=== PATIENT | female | born 1950 | race Caucasian/White ===

== ENCOUNTER 2019-10-25 17:38 | Emergency (ER) | payer MEDICARE, SELFPAY | END 2019-10-25 17:54 | disposition left against medical advice (07) | LOC: EXPBETH 17:54 | PROVIDERS: Emergency Provider Nurse Practitioner Family; PCP Internal Medicine Infectious Disease | DX: Z53.21 Procedure and treatment not carried out due to patient leaving prior to being seen by health care provider (principal) | CPT/HCPCS: 99199 ==

== ENCOUNTER 2019-10-25 17:41 | Emergency (ER) | payer MEDICARE, SELFPAY ==
--- NOTE | ~2019-10-25 | XR_ITS ---
XR wrist LT min 3V 10/25/2019 18:10 Indication: Fall. Wrist pain. Procedure: 4 views left wrist Comparison: No prior studies for comparison. Findings: Osteopenia. There is moderate osteoarthritis of the triscaphe and first CMC joints. No acut e fracture or traumatic malalignment. No focal soft tissue abnormality. No foreign bodies. There are degenerative changes of the first-third MCP joints. Impression: 1: No acute fracture. 2: Moderate polyarticular osteoarthritis. Reviewed, dictated and finalized at location A. Impression: 1: No acute fracture. 2: Moderate polyarticular osteoarthritis.
[2019-10-25 17:51] VITALS: BP 141/75; PULSE 75; RESP 16; TEMP 37.1; O2SAT 100
--- NOTE | 2019-10-25 18:04 | ED.UPPEXIN ---
HPI - Extremity Injury (Upper) General Chief Complaint: Extremity Injury, Upper Stated Complaint: left wrist injury Time Seen by Provider: 10/25/19 18:04 Source: patient and RN notes reviewed History of Present Illness HPI narrative: Patient is a 69-year-old female who presents the urgent care with complaints of left wrist/lower arm pain. Patient states that she fell at a friend's house approximately 4 hours prior to arrival trying to catch herself with her left wrist. Patient states that she has not noticed any swelling or bruising but is very painful to move. Patient denies taking anything [id number] for pain or using ice. Patient also reports of some mild right foot pain, but is ambulating without difficulty. No obvious deformities noted. No other acute complaints or injuries. Patient read the plan of care. Related Data Home Medications Medication Instructions Recorded Confirmed aspirin 81 mg tablet,delayed 81 mg PO DAILY 05/25/19 10/25/19 release cholecalciferol (vitamin D3) 10 400 unit PO DAILY 05/25/19 10/25/19 mcg (400 unit) tablet cyclobenzaprine 10 mg tablet 10 mg PO HS PRN 05/25/19 10/25/19 gabapentin 100 mg capsule 100 mg PO BID 05/25/19 10/25/19 levothyroxine 75 mcg tablet 75 mcg PO DAILY 05/25/19 10/25/19 lutein 25 mg-zeaxanthin 5 mg 1 cap PO DAILY 05/25/19 10/25/19 capsule meloxicam 7.5 mg tablet 7.5 mg PO DAILY 05/25/19 10/25/19 omega-3 fatty acids 1,000 mg 1,000 mg PO DAILY 05/25/19 10/25/19 capsule omeprazole 20 mg PO BID 10/25/19 10/25/19 Allergies Allergy/AdvReac Type Severity Reaction Status Date / Time hydromorphone [From Dilaudid] Allergy Migraine Verified 10/25/19 18:07 oxaprozin [From Daypro] Allergy Abdominal Verified 10/25/19 18:07 Pain Penicillins Allergy Rash Verified 10/25/19 18:07 raloxifene [From Evista] Allergy Nausea Verified 10/25/19 18:07 Review of Systems Review of Systems: Narrative: CONSTITUTIONAL: Denies fever, chills, or sweats. EYES: Denies visual changes, redness, or discharge. ENT: Denies rhinorrhea, congestion, sore throat, or otalgia. CARDIOVASCULAR: Denies chest pain, palpitations, or edema. RESPIRATORY: Denies cough or dyspnea. GASTROINTESTINAL: Denies abdominal pain, nausea, vomiting, or diarrhea. GENITOURINARY: Denies dysuria or hematuria. SKIN: Denies rash or itching. MUSCULOSKELETAL: Reports of left wrist and forearm pain, and mild right foot pain NEUROLOGIC: Denies headache, numbness, or weakness. All other systems reviewed are negative, except as documented in HPI. [facility] Past Medical History Medical History (Updated 10/25/19 @ 18:17 by VADIM Johns) Degenerative joint disease Depression History of foot fracture 2010 History of gastroesophageal reflux (GERD) Hypothyroid IBS (irritable bowel syndrome) Rheumatoid arthritis Surgical History Surgical History (Updated 05/25/19 @ 09:54 by Kristen Hernandez [facility]) History of appendectomy 1976 History of breast surgery R breast asp. 1999 R breast bx and lumpectomy 2006 History of cataract extraction 2016 History of cervical spinal surgery 2012 History of cholecystectomy 2016 History of dilation and curettage 1977 History of hysterectomy 1985 History of left knee replacement 2019 History of meniscectomy of left knee 2017 History of thumb surgery 2007, 2008 History of tonsillectomy and adenoidectomy Family History Family History (Updated 05/25/19 @ 09:56 by Kristen Hernandez [facility]) Other Bladder cancer Breast cancer Carcinoma of colon Diabetes mellitus Esophageal cancer Heart disease Hypertension Lung cancer Malignant neoplasm of prostate Thyroid disease Uterine cancer Social History Social History (Updated 05/25/19 @ 09:46 by Charity Gilliam RN) Smoking status: Former smoker Tobacco type: cigarettes Alcohol intake: current Comments At the time of my signature, I reviewed and agree with the nursing past medica
== END 2019-10-25 18:25 | disposition home or self-care (01) ==
PROVIDERS: Emergency Provider Nurse Practitioner Family; PCP Internal Medicine Infectious Disease
DX: S63.502A Unspecified sprain of left wrist, initial encounter (principal); S66.912A Strain of unspecified muscle, fascia and tendon at wrist and hand level, left hand, initial encounter; W19.XXXA Unspecified fall, initial encounter; Z87.891 Personal history of nicotine dependence; F32.9 Major depressive disorder, single episode, unspecified; K21.9 Gastro-esophageal reflux disease without esophagitis; E03.9 Hypothyroidism, unspecified; M06.9 Rheumatoid arthritis, unspecified; Z79.82 Long term (current) use of aspirin
CPT/HCPCS: 73110; 99213; G0463

== ENCOUNTER 2021-03-07 13:09 | Emergency (ER) | payer MEDICARE, SELFPAY ==
--- NOTE | ~2021-03-07 | XR_ITS ---
XR foot LT min 3V DATE: 03/07/2021 13:31 INDICATION: Fall down stairs. Lateral foot pain. TECHNIQUE: 4 views COMPARISON: None FINDINGS: There is mild plantar calcaneal enthesopathy. There is osteoarthritic change at the tarsometatarsal joints, first metatarsophalangeal joint and mul tiple interphalangeal joints. IMPRESSION: Polyarticular osteoarthritis Mild plantar calcaneal enthesopathy No fracture or dislocation is detected Reviewed, dictated and finalized at location A. WASHER
[2021-03-07 13:25] VITALS: BP 112/75; PULSE 84; RESP 16; TEMP 37.6; O2SAT 100
--- NOTE | 2021-03-07 13:52 | ED.LOWEXIN ---
HPI - Extremity Injury (Lower) General Chief Complaint: Extremity Injury, Lower Stated Complaint: left foot injury Time Seen by Provider: 03/07/21 13:53 Source: patient and RN notes reviewed Mode of arrival: ambulatory Limitations: no limitations History of Present Illness HPI Narrative: 70-year-old female presents concern for left foot injury. Reports today she was walking on the stairs in the dark and slipped and twisted her foot. She reports lateral and plantar pain. She reports pain at rest and worsening pain with weightbearing. She denies intervention. MD complaint: foot injury Related Data Home Medications Medication Instructions Recorded Confirmed aspirin 81 mg tablet,delayed 81 mg PO DAILY 05/25/19 03/07/21 release cholecalciferol (vitamin D3) 10 400 unit PO DAILY 05/25/19 03/07/21 mcg (400 unit) tablet cyclobenzaprine 10 mg tablet 10 mg PO HS PRN 05/25/19 03/07/21 gabapentin 100 mg capsule 100 mg PO BID 05/25/19 03/07/21 levothyroxine 75 mcg tablet 75 mcg PO DAILY 05/25/19 03/07/21 lutein 25 mg-zeaxanthin 5 mg 1 cap PO DAILY 05/25/19 03/07/21 capsule meloxicam 7.5 mg tablet 7.5 mg PO DAILY 05/25/19 03/07/21 omega-3 fatty acids 1,000 mg 1,000 mg PO DAILY 05/25/19 03/07/21 capsule omeprazole 20 mg PO BID 10/25/19 03/07/21 Allergies Allergy/AdvReac Type Severity Reaction Status Date / Time hydromorphone [From Dilaudid] Allergy Migraine Verified 10/25/19 18:07 oxaprozin [From Daypro] Allergy Abdominal Verified 10/25/19 18:07 Pain Penicillins Allergy Rash Verified 10/25/19 18:07 raloxifene [From Evista] Allergy Nausea Verified 10/25/19 18:07 Review of Systems Review of Systems: CONSTITUTIONAL: Denies malaise, chills, sweats, or fever. SKIN: Denies lacerations or abrasions, redness, warmth MUSCULOSKELETAL: Reports left foot pain, denies bruising or swelling. NEUROLOGIC: Denies numbness, weakness All systems reviewed & are unremarkable except as noted in HPI and below PMFSH Past Medical History Medical History (Updated 03/07/21 @ 13:59 by Carolyn Herbert NP) Degenerative joint disease Depression History of foot fracture 2010 History of gastroesophageal reflux (GERD) Hypothyroid IBS (irritable bowel syndrome) Rheumatoid arthritis Surgical History Surgical History (Updated 05/25/19 @ 09:54 by Kristen Hernandez [facility]) History of appendectomy 1977 History of breast surgery R breast asp. 1999 R breast bx and lumpectomy 2006 History of cataract extraction 2016 History of cervical spinal surgery 2012 History of cholecystectomy 2016 History of dilation and curettage 1977 History of hysterectomy 1985 History of left knee replacement 2019 History of meniscectomy of left knee 2017 History of thumb surgery 2007, 2008 History of tonsillectomy and adenoidectomy Family History Family History (Updated 05/25/19 @ 09:56 by Kristen Hernandez [facility]) Other Bladder cancer Breast cancer Carcinoma of colon Diabetes mellitus Esophageal cancer Heart disease Hypertension Lung cancer Malignant neoplasm of prostate Thyroid disease Uterine cancer Social History Social History (Updated 05/25/19 @ 09:46 by Charity Gilliam RN) Smoking status: Former smoker Tobacco type: cigarettes Alcohol intake: current Alcohol use details: occasional Comments At time of signature, agree with nursing past medical, surgical, social and family history. There is no relevant family history pertinent to the presenting complaint Exam Narrative: GENERAL: Well-appearing, well-nourished, and in no acute distress. HEAD: Normocephalic, atraumatic. EYES: PERRLA, conjunctivae clear NECK: Supple. CHEST: Speaks in full sentences. No respiratory distress. HEART: Regular rate and rhythm. Normal and equal peripheral pulses. EXTREMITIES: Left foot, digits have normal strength and sensation, normal range of motion. No edema or ecchymosis. 5/5 strength with digit flexion
== END 2021-03-07 14:00 | disposition home or self-care (01) ==
PROVIDERS: Emergency Provider Nurse Practitioner; PCP Internal Medicine Infectious Disease
DX: S93.602A Unspecified sprain of left foot, initial encounter (principal); W10.9XXA Fall (on) (from) unspecified stairs and steps, initial encounter; Z79.82 Long term (current) use of aspirin; K21.9 Gastro-esophageal reflux disease without esophagitis; E03.9 Hypothyroidism, unspecified; M06.9 Rheumatoid arthritis, unspecified; Z96.652 Presence of left artificial knee joint
CPT/HCPCS: 73630; 99213; G0463

== ENCOUNTER 2022-03-01 14:45 | Emergency (ER) | payer MEDICARE, SELFPAY ==
[2022-03-01 15:08] VITALS: BP 141/76; PULSE 76; RESP 16; TEMP 36.8; O2SAT 100
--- NOTE | 2022-03-01 15:12 | ED.URI ---
HPI - URI/Sore Throat General Chief Complaint: Upper Respiratory Infection Stated Complaint: sore throat/into chest Time Seen by Provider: 03/01/22 15:10 Source: patient and RN notes reviewed Mode of arrival: ambulatory Limitations: no limitations History of Present Illness HPI Narrative: 71-year-old female presented for complaints of right-sided sore throat pain for about 1 week. She states that the onset she felt like she swallowed something that scratched her throat, but states that the pain has persisted. Endorses mild sinus congestion and postnasal drainage. Denies headache, nausea, vomiting diarrhea, fevers or chills. MD elicited complaint: cough Related Data Home Medications Medication Instructions Recorded Confirmed gabapentin 100 mg capsule 100 mg PO BID 05/25/19 03/07/21 levothyroxine 75 mcg tablet 75 mcg PO DAILY 05/25/19 03/07/21 omeprazole 20 mg capsule,delayed 20 mg PO BID 10/25/19 03/07/21 release celecoxib 200 mg capsule (Celebrex) 200 mg PO DAILY 03/01/22 03/01/22 lisinopril 10 mg tablet 10 mg PO DAILY 03/01/22 03/01/22 oxybutynin chloride 5 mg tablet 5 mg PO DAILY 03/01/22 03/01/22 pantoprazole 40 mg tablet,delayed 40 mg PO HS 03/01/22 03/01/22 release pravastatin 20 mg tablet 20 mg PO DAILY 03/01/22 03/01/22 Allergies Allergy/AdvReac Type Severity Reaction Status Date / Time hydromorphone [From Dilaudid] Allergy Migraine Verified 03/01/22 15:11 oxaprozin [From Daypro] Allergy Abdominal Verified 03/01/22 15:11 Pain Penicillins Allergy Rash Verified 03/01/22 15:11 raloxifene [From Evista] Allergy Nausea Verified 03/01/22 15:11 Review of Systems Review of Systems: CONSTITUTIONAL: denies malaise, chills, sweats, fever EYES: Denies visual changes, redness, or discharge ENT: Reports rhinorrhea, congestion, sore throat, denies sinus pain, otalgia CARDIOVASCULAR: Denies chest pain, palpitations, edema RESPIRATORY: Reports post nasal drainage. Denies dyspnea GASTROINTESTINAL: Denies abdominal pain, nausea, vomiting, diarrhea SKIN: Denies rash or itching MUSCULOSKELETAL: denies myalgia NEUROLOGIC: Denies headache [facility] Past Medical History Medical History Degenerative joint disease Depression History of foot fracture 2010 History of gastroesophageal reflux (GERD) Hypothyroid IBS (irritable bowel syndrome) Rheumatoid arthritis Surgical History Surgical History History of appendectomy 1976 History of breast surgery R breast asp. 1999 R breast bx and lumpectomy 2006 History of cataract extraction 2016 History of cervical spinal surgery 2012 History of cholecystectomy 2016 History of dilation and curettage 1977 History of hysterectomy 1985 History of left knee replacement 2019 History of meniscectomy of left knee 2017 History of thumb surgery 2007, 2008 History of tonsillectomy and adenoidectomy Family History Family History Other Bladder cancer Breast cancer Carcinoma of colon Diabetes mellitus Esophageal cancer Heart disease Hypertension Lung cancer Malignant neoplasm of prostate Thyroid disease Uterine cancer Social History Social History Smoking status: Former smoker Tobacco type: cigarettes Alcohol intake: current Alcohol use details: occasional Exam Narrative: GENERAL: well-appearing EYES: PERRLA, conjunctivae clear ENT: Mucous membranes moist. TMs pearly casas with dull light reflex bilaterally; no tragal tenderness. Oropharynx erythematous without lesions or exudate, no drooling, no hoarseness, no trismus, uvula midline. No tripod positioning, muffled voice, soft palate or pharyngeal wall bulging NECK: Supple. No lymphadenopathy CHEST: Clear to auscultation, breath sounds equal. No wheezing,
[2022-03-01 15:15] VITALS: BP 141/76; PULSE 76; RESP 16; TEMP 36.8; O2SAT 100
== END 2022-03-01 15:24 | disposition home or self-care (01) ==
PROVIDERS: Emergency Provider Nurse Practitioner Family; PCP Internal Medicine Infectious Disease
DX: J02.9 Acute pharyngitis, unspecified (principal); E03.9 Hypothyroidism, unspecified; Z87.891 Personal history of nicotine dependence
CPT/HCPCS: 87081; 87880; 99213; G0463

== ENCOUNTER 2023-11-14 00:10 | Day surgery (SDC) | payer MEDICARE, SELFPAY ==
--- NOTE | 2023-11-09 09:25 | PM.IMHP ---
H&P: HPI History of Present Illness Date/Time: 11/09/23 09:25 Chief Complaint: Incontinence Narrative: mixed incontinence. Presents for surgical procedure for intrinsic sphincter deficiency Review of Systems Review of Systems: All systems reviewed & are unremarkable except as noted in HPI and below PMFSH Past Medical History Medical History Degenerative joint disease Depression History of foot fracture 2010 History of gastroesophageal reflux (GERD) Hypothyroid IBS (irritable bowel syndrome) Rheumatoid arthritis Surgical History Surgical History History of appendectomy 1976 History of breast surgery R breast asp. 1998 R breast bx and lumpectomy 2006 History of cataract extraction 2015 History of cervical spinal surgery 2011 History of cholecystectomy 2016 History of dilation and curettage 1976 History of hysterectomy 1985 History of left knee replacement 2019 History of meniscectomy of left knee 2017 History of thumb surgery 2006, 2007 History of tonsillectomy and adenoidectomy Family History Family History Other Bladder cancer Breast cancer Carcinoma of colon Diabetes mellitus Esophageal cancer Heart disease Hypertension Lung cancer Malignant neoplasm of prostate Thyroid disease Uterine cancer Social History Social History Smoking status: Former smoker Tobacco type: cigarettes Alcohol intake: current Alcohol use details: occasional Meds Home Medications and Allergies Home Medications Medication Instructions Recorded Confirmed Type gabapentin 100 mg capsule 300 mg PO TID 05/25/19 03/01/22 History levothyroxine 75 mcg tablet 75 mcg PO DAILY 05/25/19 03/01/22 History omeprazole 20 mg capsule,delayed 20 mg PO BID 10/25/19 03/01/22 History release celecoxib 200 mg capsule (Celebrex) 200 mg PO DAILY 03/01/22 03/01/22 History lisinopril 10 mg tablet 10 mg PO DAILY 03/01/22 03/01/22 History oxybutynin chloride 5 mg tablet 5 mg PO DAILY 03/01/22 03/01/22 History pantoprazole 40 mg tablet,delayed 40 mg PO HS 03/01/22 03/01/22 History release pravastatin 20 mg tablet 20 mg PO DAILY 03/01/22 03/01/22 History Allergies Allergy/AdvReac Type Severity Reaction Status Date / Time hydromorphone [From Dilaudid] Allergy Migraine Verified 03/01/22 15:11 oxaprozin [From Daypro] Allergy Abdominal Verified 03/01/22 15:11 Pain Penicillins Allergy Rash Verified 03/01/22 15:11 raloxifene [From Evista] Allergy Nausea Verified 03/01/22 15:11 Exam Narrative: no acute distress normal breathing fixed urethral Assessment and Plan Assessment and plan (1) Intrinsic sphincter deficiency (ISD): Code(s): N36.42 - Intrinsic sphincter deficiency (ISD) Status: Acute Assessment and Plan: plan for cystoscopy with bulking agent. Understands risks, benefits, alternatives. Understands success rate. Understands may require future procedures. Understands the risk of urinary retention. Understands it will not help her overactive bladder component
--- NOTE | 2023-11-10 13:14 | PC.NURSE ---
Report to the Outpatient Waiting Room, entrance under the green pavilion located off [facility], at time ___0600____ on date 11/14/23 . Planned Procedure Time: _0730 . Time changes happen often and if your time is changed the preop area will call you the afternoon before. - You and your visitor will be asked to self-screen and do not enter if you have any COVID symptoms. - A mask is optional within the hospital at this time. Patients may have clear liquids (water, carbonated beverages, clear teas, apple juice) until 3 hours prior to surgery (0430)with a maximum of 20 ounces. - No food from midnight until time of surgery - Infants may have breast milk until 4 hours before surgery, formula 6 hours prior to surgery. - Children will be allowed to drink immediately following surgery. If applicable, please bring a bottle or sippy cup to assist with drinking. Juice, water, soda, and popsicles are readily available. For infants on formula, please bring formula the day of surgery. Pacifiers are allowed. Take the following medications with a SIP of water the morning of surgery: __BUPROPION,GABAPENTIN,LEVOTHYROXINE, DO NOT STOP ANY OF YOUR OTHER PRESCRIPTION MEDICATIONS PRIOR TO SURGERY ?EXCEPT THE FOLLOWING Medications to discontinue per physician _PT STATES HOLD ASPIRIN ,CELEBREX,AND ALL VITAMINS AND SUPPLEMENTS 7 DAYS PRE OP PER DR DURAN .LAST DOSE 11/06/23 Please no make-up, nail vietnamese, hairspray, perfume, deodorant, or body powder the day of surgery. No jewelry (including any body piercings) or valuables the day of surgery, leave them at home. Please take a shower or bath the night before, or the morning of, surgery with an antibacterial soap. Wear comfortable, loose fitting clothing. Children are encouraged to wear pajamas. - Jewelry must be removed prior to entering the operating room. Rings and piercings that are not removed may be cut off. - The hospital will not accept responsibility for valuables. - Please leave all valuables, including medications, at home the day of surgery. If you are going home after surgery, a licensed bung driver must drive you home. - NO public transportation without another adult if you receive anesthesia. - We recommend that an adult stay with you for 24 hours following discharge. - We also recommend that you do not drive, make important decision, drink alcoholic beverages, or take any drugs that were not prescribed by your health care provider for at least 24 hours after your discharge time. For Pediatric surgeries, we recommend two adults accompany the child home. Follow any additional instructions given to you from your surgeon. If you or anyone in your household have experienced Covid symptoms in the past week, please notify your surgeon or the nurse liaison at the phone number below for possible testing. Telephone instructions given to ___PATIENT and asked if any additional questions and then verbalized understanding. Patient advised to call surgeon office or pre surgery nurse liaison [phone] if any additional questions.
[2023-11-10 13:21] VITALS: BMI 29.4
[2023-11-14 06:00] VITALS: BP 137/59; PULSE 74; RESP 16; TEMP 36.2; O2SAT 97; BMI 30.9
--- NOTE | 2023-11-14 06:21 | WPDHPUPDATE1 ---
History and Physical Update Update Date/Time: 11/14/23 06:21 History and Physical has been reviewed, including an updated exam of the patient. There are NO changes in the patient's condition. Risks, benefits, and alternatives have been discussed and questions answered. Patient agrees to proceed with procedure.
[2023-11-14] MEDS: LACTATED RINGERS 1,000 ML 30 ML IV CONT (06:30)
[2023-11-14 06:38] LABS: Hematocrit 41.3 % (37.0-47.0); Hemoglobin 13.6 g/dL (12.0-15.0)
--- NOTE | 2023-11-14 06:58 | WPDANESEPPF ---
Anes - Initial Pre Proc Eval Procedure: Operation Date: 11/14/23 07:30 Proposed Procedures p Cystoscopy, Injection Bulking Agent - Raúl Dang MD Date/Time: 11/14/23 06:58 Surgeon: Raúl Dang MD Pre Op Diagnosis: sensory urge incontinence Patient Data Age: 73 Gender: F Height: 1.57 m Weight: 76.8 kg Last Vital Signs Temp 97.1 F L 11/14/23 06:00 Pulse 74 11/14/23 06:00 Resp 16 11/14/23 06:00 BP 137/59 L 11/14/23 06:00 Pulse Ox 97 11/14/23 06:00 O2 Del Method Room Air 11/14/23 06:00 Allergies Allergy/AdvReac Type Severity Reaction Status Date / Time alendronate sodium Allergy Nausea and Verified 11/14/23 06:52 [From Fosamax] Vomiting hydromorphone [From Dilaudid] Allergy Migraine Verified 11/14/23 06:52 oxaprozin [From Daypro] Allergy Abdominal Verified 11/14/23 06:52 Pain Penicillins Allergy Rash Verified 11/14/23 06:52 raloxifene [From Evista] Allergy Nausea Verified 11/14/23 06:52 Home Medications Medication Instructions Recorded Confirmed Type gabapentin 100 mg capsule 300 mg PO TID 05/25/19 11/14/23 History levothyroxine 75 mcg tablet 75 mcg PO DAILY 05/25/19 11/14/23 History celecoxib 200 mg capsule (Celebrex) 200 mg PO DAILY 03/01/22 11/14/23 History lisinopril 10 mg tablet 10 mg PO DAILY 03/01/22 11/10/23 History pantoprazole 40 mg tablet,delayed 40 mg PO HS 03/01/22 11/10/23 History release pravastatin 20 mg tablet 20 mg PO DAILY 03/01/22 11/10/23 History aspirin 81 mg tablet,delayed 81 mg PO DAILY 11/10/23 11/14/23 History release (Adult Low Dose Aspirin) bupropion HCl 300 mg 24 hr tablet, 300 mg PO QAM 11/10/23 11/14/23 History extended release calcium carbonate 600 mg-vitamin 1 tablet PO DAILY 11/10/23 11/14/23 History D3 10 mcg (400 unit) tablet (Calcium 600 + D(3)) cholecalciferol (vitamin D3) 125 125 mcg PO DAILY 11/10/23 11/14/23 History mcg (5,000 unit) capsule cyclobenzaprine 10 mg tablet 10 mg PO HS 11/10/23 11/10/23 History lutein 25 mg-zeaxanthin 5 mg 1 cap PO DAILY 11/10/23 11/14/23 History capsule (Ocuvite Blue Light) mirabegron 25 mg tablet,extended 25 mg PO DAILY 11/10/23 11/10/23 History release 24 hr Laboratory Tests 11/14/23 06:34 Hgb 13.6 g/dL (12.0-15.0) Hct 41.3 % (37.0-47.0) Patient hx anesthesia problems: none Family hx anesthesia problems: none Results Review: All pre-operative results and documents have been reviewed as part of the pre-operative evaluation. [facility] Past Medical History Medical History Degenerative joint disease Depression History of foot fracture 2010 History of gastroesophageal reflux (GERD) Hypothyroid IBS (irritable bowel syndrome) Rheumatoid arthritis Surgical History Surgical History History of appendectomy 1976 History of breast surgery R breast asp. 1998 R breast bx and lumpectomy 2006 History of cataract extraction 2016 History of cervical spinal surgery 2012 History of cholecystectomy 2016 History of dilation and curettage 1977 History of hysterectomy 1985 History of left knee replacement 2019 History of meniscectomy of left knee 2017 History of thumb surgery 2007, 2008 History of tonsillectomy and adenoidectomy Family History Family History Other Bladder cancer Breast cancer Carcinoma of colon Diabetes mellitus Esophageal cancer Heart disease Hypertension Lung cancer Malignant neoplasm of prostate Thyroid disease Uterine cancer Social History Social History Smoking packs per day: 1 Smoking cigarettes per day: 20.0 Years smoked: 40 Smoking pack-years: 40.00 Smoking status: Former smoker Tobacco type: cigarettes Smoking end date:
[2023-11-14] MEDS: ceFAZolin 2 GM/D5W 50 ML 2 GM/50 ML BAG IVPB (07:28)
[2023-11-14] MEDS: LIDOCAINE HCL 2% GEL UROJET 10 ML PKG MUCOUS MEM (07:38)
[2023-11-14 07:49] VITALS: BP 106/50; PULSE 75; RESP 16; O2SAT 98
--- NOTE | 2023-11-14 08:01 | W.PM.PROC2 ---
Procedure Note - Detailed Date of Procedure 11/14/23 Pre-op Diagnosis intrinsic sphincter deficiency Post-op Diagnosis Same Procedure Performed cystoscopy with suburethral injection of implant material Surgeon Raúl Dang MD Anesthesia MAC and Local Indications still with mixed incontinence. She is here today for treatment for her intrinsic sphincter deficiency. She understands risks of bleeding, infection, damage to the urinary tract. She understands it will not help overactive bladder symptoms. He understands the risks of obstructive voiding and need for repeat procedures and need for catheterization. She agrees to proceed Findings open urethra consistent with intrinsic sphincter deficiency Description of Procedure she was correctly identified. Informed consent obtained. She had from the operating room. She was given monitored anesthesia care. She was given lidocaine jelly. She was prepped draped sterile fashion time-out performed. Cystoscopy revealed a normal-appearing bladder without abnormalities. Urethra open consistent with intrinsic sphincter deficiency. I picked a site in the mid urethra 2 cm distal to bladder neck. I injected bulking agent circumferentially. I used 1-1/2 syringe. There was excellent bulking effect. Her bladder was left partially full. She was awakened transferred to PACU in stable condition Estimated Blood Loss 0 Packing No Pathology None sent Complications No immediate complications Condition Stable Disposition PACU
[2023-11-14 08:20] VITALS: BP 103/52; PULSE 76; RESP 16
[2023-11-14 08:44] VITALS: BP 123/59; PULSE 77; RESP 16
== END 2023-11-14 08:45 | disposition home or self-care (01) ==
PROVIDERS: PCP Internal Medicine Infectious Disease; Visit Provider Urology
PROC: 3E0K8GC Introduction of Other Therapeutic Substance into Genitourinary Tract, Via Natural or Artificial Opening Endoscopic (ICD-10-PCS; CPT 51715; principal; 2023-11-14 07:30)
DX: N36.42 Intrinsic sphincter deficiency (ISD) (principal); E03.9 Hypothyroidism, unspecified; K21.9 Gastro-esophageal reflux disease without esophagitis; F32.A Depression, unspecified; M06.9 Rheumatoid arthritis, unspecified; Z79.82 Long term (current) use of aspirin; Z87.891 Personal history of nicotine dependence
CPT/HCPCS: 51715; 36415; 85014; 85018; J0690; J1100; J2405; J2704; J3010; J7120; L8606